=== PATIENT | female | born 1970 | race Caucasian/White ===

== ENCOUNTER 2021-11-30 15:28 | Emergency (ER) | payer BC, SELFPAY ==
[2021-11-30 15:35] VITALS: BP 128/85; PULSE 83; RESP 16; TEMP 36.6; O2SAT 97; BMI 36.6
--- NOTE | 2021-11-30 16:29 | CRLHL7_ITS ---
For Patients: As a result of the Cures Act, medical imaging exams and procedure reports are released immediately into your electronic medical record. You may view this report before your referring provider. If you have questions, please contact your health care provider. INDICATION: Pain. TECHNIQUE: Three views. COMPARISON: None. IMPRESSION: No appreciable joint effusion. No fracture, subluxation or dislocation. Dictated by Lane Dobbs MD @ 11/30/2021 5:57:05 PM (Electronically Signed)
--- NOTE | 2021-11-30 16:31 | ED_ITS ---
HPI - General Adult General Time Seen by Provider: 16:31 Date Seen: 11/30/21 Chief complaint: Extremity Pain/Injury, Lower Stated complaint: Knee Injury Time Seen by Provider: 11/30/21 15:36 Source: patient Mode of arrival: ambulatory Limitations: physical limitation History of Present Illness HPI narrative: Patient is a 51-year-old female who was walking with some bags of groceries in her hands and her left knee twisted somehow she thinks it was a valgus-type switch twist and she has a immediate pain around her kneecap she is unable to walk after that now it hurts to put bearing weight on her leg. She had a history of a ACL repair on the left knee in the past, but she reports the ?trimmed it did not fix it?. This was an arthroscopic surgery remotely. She has no swelling of the leg no swelling of the knee, no history of recent knee injury, no other injuries reported reports the discomfort is moderate but significant when she moves her knee , does not radiate Related Data Home Medications Medication Instructions Recorded Confirmed escitalopram oxalate 10 mg tablet mg 11/30/21 levothyroxine 75 mcg tablet mcg 11/30/21 metformin 500 mg tablet,extended mg PO 11/30/21 release 24 hr rosuvastatin 5 mg tablet mg 11/30/21 topiramate 50 mg tablet mg 11/30/21 Previous Rx's Medication Instructions Recorded ketorolac 10 mg tablet 10 mg PO Q8H PRN pain 3 days #14 11/30/21 tabs Allergies Allergy/AdvReac Type Severity Reaction Status Date / Time No Known Drug Allergies Allergy Verified 11/30/21 15:40 Review of Systems Status of ROS: Reports: 6 or more systems reviewed and unremarkable except as noted in History and below PFSH PFSH Social History Smoking Status: Never smoker Do you use any of these nicotine containing products: None How often do you have a drink containing alcohol: monthly or less How many standard drinks containing alcohol do you have on a typical day: 1 or 2 AUDIT-C Alcohol total score: 1 Non-prescribed substance use: denies use service: No Exam Narrative: Exam Narrative: Objective: Patient is alert or x3 Left knee exam shows no effusion, mild patellar apprehension, mild medial patellar to tenderness. Mild medial joint line tenderness anteriorly. Range of motion is limited secondary to discomfort but I am able to flex extend her knee in her kneecap seems to track in the right position. Left lower extremity otherwise unremarkable Const: Vital Signs, click to edit/add: Vital Signs - 24 hr 11/30/21 15:35 Temperature 97.8 F Pulse Rate [Pulse Oximeter] 83 Respiratory Rate 16 Blood Pressure [Ri ght Upper Arm] 128/85 Pulse Oximetry 97 Oxygen Delivery Me thod Room Air Course Vital Signs Vital signs: Initial Vital Signs Temperature 97.8 F 11/30/21 15:35 Temperature Source Temporal Artery Scan 11/30/21 15:35 Pulse Rate 83 11/30/21 15:35 Pulse Rhythm 11/30/21 15:35 Pulse Strength 3+ Normal 11/30/21 15:35 Respiratory Rate 16 11/30/21 15:35 Blood Pressure 128/85 11/30/21 15:35 Blood Pressure Mean 99 11/30/21 15:35 Blood Pressure Position Sitting 11/30/21 15:35 Pulse Oximetry 97 11/30/21 15:35 Oxygen Delivery Method 11/30/21 15:35 Vital Signs Temperature 97.8 F 11/30/21 15:35 Pulse Rate 83 11/30/21 15:35 Respiratory Rate 16 11/30/21 15:35 Blood Pressure 128/85 11/30/21 15:35 Pulse Oximetry 97 11/30/21 15:35 Oxygen Delivery Method 11/30/21 15:35 Temperature 97.8 F 11/30/21 15:35 Pulse Rate 83 11/30/21 15:35 Respiratory Rate 16 11/30/21 15:35 Blood Pressure 128/85 11/30/21 15:35 Pulse Oximetry 97 11/30/21 15:35 Oxygen Delivery Method 11/30/21 15:35 Medical Decision Making MDM Narrative Medical decision making narrative: Patient has a knee injury, which certainly could be patellar subluxation, meniscal tear medially. We will get an x-ray of her k The nee including a sunrise view. Will put in an immobilizer. Will give her Toradol and [place] now. Likely crutch walking, knee immobilizer, icing, Toradol for home , orthopedic followup in the next 2-3 days. Addendum: The patient's x-ray of her knee by my review looks unremarkable kneecap is in the proper alignment the femoral groove. Patient will be given knee immobilizer, crutches if she wishes, sasha and [place] recommended, follow up with primary care. Will fax in a Toradol prescription, I think when she is in immobilizer in icing she will have less discomfort. Discharge Plan Discharge Clinical Impression: Acute knee pain Patient Disposition: Home w/ Parent or Adult Condition: Stable Additional Instructions: Knee immobilizer, icing, Toradol as needed, return to see primary care in 2 to 3 days, crutches if needed Activity Level: Light activity and Weight Bearing as Tolerated Discharge Diet: Regular Prescriptions: New ketorolac 10 mg tablet 10 mg PO Q8H PRN (Reason: pain) 3 Days Qty: 14 0RF No Action levothyroxine 75 mcg tablet Label Comments: TAKE 1 TABLET BY MOUTH DAILY metformin 500 mg tablet extended release 24 hr PO Label Comments: TAKE 1 TABLET BY MOUTH TWICE DAILY WITH BREAKFAST AND DINNER escitalopram oxalate 10 mg tablet Label Comments: TAKE 1 TABLET BY MOUTH DAILY rosuvastatin 5 mg tablet Label Comments: TAKE 1 TABLET BY MOUTH DAILY topiramate 50 mg tablet Label Comments: TAKE 1 TABLET BY MOUTH TWICE DAILY Stand Alone Forms: MyHealth Info Instructions
[2021-11-30] MEDS: HYDROCODONE/ACETAMIN 7.5-325 TABLET 1 TAB PO (16:39)
[2021-11-30] MEDS: KETOROLAC 10 MG TABLET PO (16:39)
--- NOTE | 2021-11-30 17:35 | ED.NURSE ---
20 knee immobilizer applied to pt L leg, crutches provided to pt. Crutch walking instruction provided. Pt tolerates ambulation with crutches with some difficulty.
== END 2021-11-30 17:48 | disposition home or self-care (01) ==
PROVIDERS: Emergency Provider Family Medicine; PCP Family Medicine
DX: M25.562 Pain in left knee (principal)
CPT/HCPCS: 73562; 99283; A9270

== ENCOUNTER 2021-12-28 09:07 | Day surgery (SDC) | payer BC, SELFPAY ==
[2021-12-28] VITALS (11 sets, daily range): BP systolic 103–153; BP diastolic 59–98; PULSE 60–88; RESP 12–20; TEMP 36.1–36.7; O2SAT 93–98; BMI 36.6
[2021-12-28] MEDS: LACTATED RINGERS 1000 ML 1,000 ML 100 ML IV (09:32)
[2021-12-28] MEDS: SODIUM CHLORIDE 0.9 % (FLUSH) 10 ML SYRINGE IVF (09:32)
[2021-12-28] MEDS: CEFAZOLIN 2 GM in 0.9 % SODIUM CHLORIDE Mini-bag 100 ML IVPB (11:45)
[2021-12-28] MEDS: ROPIVACAINE 0.5% 30 ML 150 MG INJECTION (12:27)
--- NOTE | 2021-12-28 12:27 | P.ORPRC_ITS ---
Procedure Note Date of procedure: 12/28/21 Procedure: PREOPERATIVE DIAGNOSIS: 1. Left knee medial meniscus tear POSTOPERATIVE DIAGNOSIS: 1. Left knee medial meniscus [id number] tear with fragment flipped into the intercondylar notch PROCEDURE: 1. Left knee arthroscopic partial medial menisectomy, subtotal meniscectomy SURGEON: Sumit Bangura M.D. STATIONARY ENGINEER SUPERVISOR: Otilio Wall PA-C. Of note, an visitor information assistant was critical for this case to aid in patient positioning, knee manipulation, instrument exchange, and closure. ANESTHESIA: Spinal EBL: 2ml TOURNIQUET: 30 min at 300 torr COMPLICATIONS: None evident INDICATIONS: The patient is a pleasant 51-year-old female who has experienced left knee pain particularly with any twisting or turning. Physical exam was concerning for medial meniscus tear, this was confirmed on MRI. Additionally, attempted nonoperative management has been tried, and failed. Thus, surgery was recommended. FINDINGS: Bucket-handle medial meniscus tear with displaced fragment into the intercondylar notch. While primarily longitudinal bucket-handle type tear, did have some complexity to it through the red-red, red-white zone. Tissue quality not amenable to repair. DESCRIPTION OF PROCEDURE: After a thorough discussion of risks, benefits, and alternatives, the patient was brought to the operating room and placed upon the operating table. Induction of anesthesia was undertaken as previously noted. 2g iv Ancef was administered within 1 hr of incision preoperatively. Appropriate time-out was performed identifying proper patient, site, and procedure. The left lower extremity was prepped and draped in the appropriate sterile fashion using ChloraPrep. The limb was exsanguinated and tourniquet inflated. Anterolateral and anteromedial portals were established with an 11 blade, and a diagnostic arthroscopy was performed. This identified the findings as noted above. Following the diagnostic arthroscopy, a partial for medial menisectomy was performed with the combination of basket forceps and a motorized shaver. Following this, the meniscus was re-probed and found to be stable. Approximately 66-75 % of the overall meniscus required resection. At this stage, the shaver was reinserted into the suprapatellar pouch and all remaining meniscal debris was evacuated. Instruments were removed, excess fluid was drained, and closure performed with 4-0 Monocryl with Steri-Strips. Dressings were applied, the tourniquet deflated, and the patient was awoken from anesthesia and transferred to the PACU in stable condition. PLAN: 1. Weightbear as tolerated operative extremity. Crutch / walker ambulation assistance PRN. Straight leg raise to be initiated starting tomorrow by the patient. 2. Ice, acetominophen and/or ibuprofen, and Percocet for pain as needed. 3. Knee range of motion and quad sets/straight leg raise regularly 4. Follow up with PA visit in 7-10 days. for a wound check. Initiate physical therapy at that time
--- NOTE | 2021-12-28 12:37 | W.ANESCHARGE ---
Anesthesia Charges Start Date/Time Anesthesia Start Date: 12/28/21 Anesthesia Start Time: 11:33 Stop Date/Time Anesthesia Stop Date: 12/28/21 Anesthesia Stop Time: 12:35 Summary Emergency: No
--- NOTE | 2021-12-28 12:47 | W.ANESCHARGE ---
Anesthesia Charges Start Date/Time Anesthesia Start Date: 12/28/21 Anesthesia Start Time: 11:33 Stop Date/Time Anesthesia Stop Date: 12/28/21 Anesthesia Stop Time: 12:35 Summary Emergency: No
== END 2021-12-28 13:57 | disposition home or self-care (01) ==
PROVIDERS: PCP Family Medicine; Visit Provider Orthopaedic Surgery Sports Medicine
PROC: (CPT 29870; principal; 2021-12-28 11:00)
DX: S83.212A Bucket-handle tear of medial meniscus, current injury, left knee, initial encounter (principal)
CPT/HCPCS: 29881; 01400; 82962; J0690; J2250; J2400; J2405; J2704; J2795; J3010; J7120

== ENCOUNTER 2022-02-11 10:00 | Outpatient (RCR) | payer BC, SELFPAY | END 2022-02-11 10:40 | disposition home or self-care (01) | PROVIDERS: PCP Family Medicine; Visit Provider Physician Assistant Surgical | DX: Z98.890 Other specified postprocedural states (principal); Z51.89 Encounter for other specified aftercare | CPT/HCPCS: 97110; 97161 ==

== ENCOUNTER 2022-05-31 09:26 | Outpatient (CLI) | payer BC, SELFPAY | END 2022-05-31 09:27 | disposition home or self-care (01) | LOC: NFLDREF 06-04 10:01 | PROVIDERS: PCP Family Medicine; Referring Provider Family Medicine; Visit Provider Family Medicine | DX: E55.9 Vitamin D deficiency, unspecified (principal); E11.29 Type 2 diabetes mellitus with other diabetic kidney complication; R80.9 Proteinuria, unspecified; E03.9 Hypothyroidism, unspecified; E11.9 Type 2 diabetes mellitus without complications; E66.01 Morbid (severe) obesity due to excess calories; E78.5 Hyperlipidemia, unspecified; F41.9 Anxiety disorder, unspecified | CPT/HCPCS: 80053; 80061; 82043; 82306; 82570; 84443 ==

== ENCOUNTER 2022-06-17 07:57 | Outpatient (CLI) | payer BC, SELFPAY | END 2022-06-17 07:58 | disposition home or self-care (01) | PROVIDERS: PCP Family Medicine; Referring Provider Family Medicine; Visit Provider Family Medicine | DX: R68.89 Other general symptoms and signs (principal) | CPT/HCPCS: 80048 ==

== ENCOUNTER 2022-12-03 07:59 | Outpatient (CLI) | payer BC, SELFPAY | END 2022-12-03 08:00 | disposition home or self-care (01) | LOC: NFLDREF 12-04 12:40 | PROVIDERS: PCP Family Medicine; Referring Provider Family Medicine; Visit Provider Family Medicine | DX: R73.03 Prediabetes (principal); E11.29 Type 2 diabetes mellitus with other diabetic kidney complication; R80.9 Proteinuria, unspecified; I10 Essential (primary) hypertension; E78.5 Hyperlipidemia, unspecified; E03.9 Hypothyroidism, unspecified | CPT/HCPCS: 80053; 80061; 82043; 82570; 84443 ==

== ENCOUNTER 2023-07-15 07:53 | Outpatient (CLI) | payer BC, SELFPAY ==
--- OUTSIDE RECORDS SUMMARY | 2023-07-18 08:11 | XMS_ITS | Clinical Summary ---
Author Name Unknown Organization [facility] Address [place], [place] [address] Care Team Providers Care Hardware Assembler Name Role Phone Pcp, No Primary Care Provider Unavailabl e Allergies No known active allergies Medications Medication Sig Dispensed Refills Start Date End Date Status IMITREX 50 MG TAB take 2 tablets (100mg) by oral route x 1 dose with fluids as early as possible after the onset of a migraine attack; if headache returns, the dose may be repeated after 2 hours, not to exceed a total daily dose of 200mg. 0 Active topiramate (TOPAMAX) 50 mg tablet TK 1 T PO BID 3 11/25/2017 Active VITAMIN D-3 2,000 unit capsule TK 1 C PO D 1 12/06/2017 Active levothyroxine (SYNTHROID) 50 mcg tablet TK 1 T PO D 0 08/08/2018 Active oxyCODONE-acetamin ophen, 5-325 mg, (PERCOCET) 5-325 mg per tabletIndications: Kidney stones Take 1 tablet by mouth every 6 hours if needed for Pain Max acetaminophen dose: 4000mg in 24 hrs. 15 tablet 09/27/2018 Active Active Problems Problem Noted Date Diagnosed Date Kidney stones 09/27/2018 state, incidental 08/29/2006 Migraine, unspecified, witho ut mention of intractable migraine without mention of status migrainosus 07/26/2006 Immunizations Name Administration Dates Next Due Influenza, IIV3 (Age >=3 years) 01/26/2007 Td (Age >=7 Years) 12/11/2004 Family History Medical History Relation Name Comments Other Brother allergic rhinit is Alcohol/Drug Maternal Grandfather Cancer Maternal Grandfather Hypertension Maternal Grandmother Other Mother migraine Psychiatric illness Sister 1 depressi on Other Sister 2 allergic rhinit is1 Unknown Son Relation Name Status Comments Brother Maternal Grandfather Maternal Grandmother Mother Sister 1 Sister 2 Son Social History Tobacco Use Types Packs/Day Years Used Date Smoking Tobacco: Never Smokeless Tobacco: Never Tobacco Cessation:Counseling Given: Yes Alcohol Use Standard Drinks/Week Comments No 0 (1 standard drink = 0.6 oz pur e alcohol) Sex and Gender Information Value Date Recorded Sex Assigned at Not on file Gender Identity Not on file Sexual Orientation Not on file Obstetrics History Para Term AB IAB SAB Ectopic Multiple Livin g Live Births 2 1 0 0 0 0 0 0 1 1 Date Outcome GA Total Labor Labor/2nd/3rd Weight Sex Delivery Anes PTL Patty A1 A5 Name Cl in Para 05/10 12h 00m/ 3.01 kg (6 lb 10 oz) F Vag Nya ng Chen Comments 07-26-06 irreg menses, unsure of dates U/S scheduled Last Filed Vital Signs Vital Sign Reading Time Taken Comments Blood Pressure 111/75 09/27/2018 10:17 AM CDT Pulse 87 09/27/2018 10:17 AM CDT Temperature 36.7 ??C (98.1 ??F) 09/27/2018 1 0:17 AM CDT Respiratory Rate 18 09/27/2018 10:1 7 AM CDT Oxygen Saturation 96% 09/27/2018 10: 17 AM CDT Inhaled Oxygen Concentration - - Weight 96.5 kg (212 lb 11.2 oz) 09/27/2018 10:17 AM CDT Pt weighed with shoes on. Height 160 cm (5' 3) 02/08/2018 11:44 AM ROUGH RIB GRADER Body Mass Index 37.68 02/08/2018 11:44 AM ROUGH RIB GRADER Plan of Treatment Health Maintenance Due Date Last Done Comments Tdap 1982 Depression screening for age 12+ 1983 Hepatitis C screening for age 18-79 1989 Tetanus booster 12/11/2014 12/11/2004 Colonoscopy through age 75 01/26/2016 Lipids for age 45-75 01/26/2016 Mammogram for age 45-75 01/26/2016 01/19/2011 BMI (ht and wt on same day) for age 18+ 02/08/2019 02/08/2018 Zoster (shingles) series for age 50+ (1 of 2) 2021 Pap test for age 21-65 10/16/2022 0, 10/17/2019, 12/05/2014, Additional history exists COVID-19 vaccine series ( season) 2022 Influenza for age 50-64 11/27/2023 01/26/2007 HIV for age 15-65 Completed 07/26/2006 Pneumococcal series for age 6-64 Aged Out No longer eligible based on patient's age to complete this topic Procedures Procedure Name Priority Date/Time Associated Diagnosis Comments GOLD LEAF GILDER THIN PREP PAP SCREEN IMAGED Routine 10/17/2019 12:00 PM CDT SCAN-MAMMOGRAPHY REPORT 01/19/2011 12:00 AM CDT ANTI HIV 1/2 Routine 07/26/2006 1:15 PM CDT State, Incidental from Last 3 Months or Most Recently Relevant to Health Maintenance Results * GOLD LEAF GILDER THIN PREP PAP SCREEN IMAGED (10/17/2019 12:00 PM CDT) Case Report Gynecologic Cytology Report ? Case: [id number] ? Authorizing Provider: ??Belinda Go MD ??Collected: ? 10/17/2019 1200 ? Ordering Location: ? [facility] ?Received: ?10/19/2019 0959 ? First Screen: ?Elena Boucher ? Specimen: ?GOLD LEAF GILDER ThinPrep Vial Screening, Cervical/Vaginal ? 10/25/2019 3:04 PM CDT [facility] INTERPRETATION/ RESULT NEGATIVE FOR INTRAEPITHELIAL LESION OR MALIGNANCY (NIL) (none) 10/25/2019 3:04 PM CDT [facility] IMEN ADEQUACY Satisfactory for evaluation No endocervical component seen 10/25/2019 3:04 PM CDT [facility] HPV REQUEST HPV and PAP 10/25/2019 3:04 PM CDT [facility] Additional Information 10/25/2019 3:04 PM CDT [facility] Comment: Interpreted at [facility] - [address], [place] [address] Automated Review Successful 10/25/2019 3:04 PM T [facility] Comment:Specimen processed s uccessfully by automated cloud systems administrator device, ThinPrep Imaging System, [employer] ANCILLARY TESTING GOLD LEAF GILDER HPV Ordered, Please see separate report 10/25/2019 3:04 PM CDT [facility] Note The pap test is a screening technique, not a diagnostic procedure. It is used primarily to screen for squamous cancers and precursor lesions. Published studies have shown that it is subject to both false negative and false positive results. The pap test should not be used as the sole means to diagnose or exclude pre-malignant and malignant lesions. 10/25/2019 3:04 PM CDT [facility] Other (Cervical/Vagina l) 10/17/2019 12:00 PM CDT 10/19/2019 9:59 AM CDT Belinda Go MD PATHOLOGY/CYTOLO GY [facility] [address] [place] [address], [place] * SCAN-MAMMOGRAPHY REPORT (01/19/2011 12:00 AM CDT) Anatomical Region Laterality Modality Other Narrative Procedure Note Scanner - 01/19/2011 12:00 AM CDT Scanner OTHER * ANTI HIV 1/2 (07/26/2006 1:15 PM CDT) ANTI HIV 1/2 Non-reacti ve [facility] Blood specimen (specimen) BLOOD SPECIMEN / Unknown 07/26/2006 1:15 PM CDT 07/26/2006 1:01 PM CDT Sweta Doshi NP SEND OUTS [facility] INTERNAL ZIP [phone] [address] from Last 3 Months or Most Recently Relevant to Health Maintenance Care Teams Hardware Assembler Relationship Specialty Start Date End Date Pcp, No . PCP - General 05/21/15
== END 2023-07-15 07:54 | disposition home or self-care (01) ==
LOC: NFLDREF 07-18 08:09
PROVIDERS: PCP Family Medicine; Referring Provider Family Medicine; Visit Provider Family Medicine
DX: E11.29 Type 2 diabetes mellitus with other diabetic kidney complication (principal); R80.9 Proteinuria, unspecified; E78.5 Hyperlipidemia, unspecified
CPT/HCPCS: 80053; 80061; 82043; 82570

== ENCOUNTER 2023-10-12 12:48 | Outpatient (CLI) | payer BC, SELFPAY ==
--- OUTSIDE RECORDS SUMMARY | 2023-10-12 12:50 | XMS_ITS | Clinical Summary ---
Author Organization [facility] Address [place], [place] [address] Care Team Providers Care Cavalry Officer Name Role Phone Pcp, No Primary Care [...] Outcome GA Total Labor Labor/2nd/3rd Weight Sex Type Anes PTL Patty A1 A5 Name Clin Para 2003 12h 00m/ 3.01 kg (6 lb 10 oz) F Vag Living Chen Comments 07-26-06 irreg menses, unsure of [...] 160 cm (5' 3) 02/08/2018 11:44 AM INDUSTRIAL PSYCHOLOGIST Body Mass Index 37.68 02/08/2018 11:44 AM INDUSTRIAL PSYCHOLOGIST Plan of Treatment Health Maintenance Due Date [...] Procedure Name Priority Date/Time Associated Diagnosis Comments UTILITY TELLER THIN PREP PAP SCREEN IMAGED Routine 10/17/2019 12:00 PM CDT SCAN-MAMMOGRAPHY REPORT 01/19/2011 12:00 AM CDT ANTI HIV 1/2 Routine 07/26/2006 1:15 PM CDT State, Incidental from Last 3 Months or Most Recently Relevant to Health Maintenance Results * UTILITY TELLER THIN PREP PAP SCREEN IMAGED (10/17/2019 12:00 PM CDT) Case Report Gynecologic Cytology Report ? Case: [id number] ? Authorizing Provider: ??Belinda Go MD ??Collected: ? 10/17/2019 1200 ? Ordering Location: ? [facility] ?Received: ?10/19/2019 0959 ? First Screen: ?Elena Boucher ? Specimen: ?UTILITY TELLER ThinPrep Vial Screening, Cervical/Vaginal ? 10/25/2019 3:04 PM CDT [facility] INTERPRETATION/ RESULT NEGATIVE FOR INTRAEPITHELIAL LESION OR MALIGNANCY (NIL) (none) 10/25/2019 3:04 PM CDT [facility] IMEN ADEQUACY Satisfactory for evaluation No endocervical component seen 10/25/2019 3:04 PM CDT [facility] HPV REQUEST HPV and PAP 10/25/2019 3:04 PM CDT [facility] Additional Information 10/25/2019 3:04 PM CDT [facility] Comment: Interpreted at [facility] - [address], [place] [address] Automated Review Successful 10/25/2019 3:04 PM CDT [facility] Comment:Specimen processed s uccessfully by automated geochemical manager device, ThinPrep Imaging System, [employer] ANCILLARY TESTING UTILITY TELLER HPV Ordered, Please see separate report 10/25/2019 3:04 PM CDT [facility] Note The pap test is a [...] and malignant lesions. 10/25/2019 3:04 PM CDT [facility] Other (Cervical/Vagina l) 10/17/2019 12:00 PM CDT 10/19/2019 9:59 AM CDT Belinda Go MD PATHOLOGY/CYTOLO GY [facility] [address] [place] [address], [place] * SCAN-MAMMOGRAPHY REPORT (01/19/2011 12:00 AM CDT) Anatomical Region Laterality Modality Other Narrative Procedure Note Scanner - 01/19/2011 12:00 AM CDT Scanner OTHER * ANTI HIV 1/2 (07/26/2006 1:15 PM CDT) ANTI HIV 1/2 Non-reacti ve [facility] Blood specimen (specimen) BLOOD SPECIMEN / Unknown 07/26/2006 1:15 PM CDT 07/26/2006 1:01 PM CDT Sweta Doshi NP SEND OUTS [facility] INTERNAL ZIP [phone] [address] from Last 3 Months or Most Recently Relevant to Health Maintenance Care Teams Cavalry Officer Relationship Specialty Start Date End Date Pcp, No . PCP - General 05/21/15
--- NOTE | 2023-10-12 13:00 | CRLHL7_ITS ---
For Patients: As a result of the Cures Act, medical imaging exams and procedure reports are released immediately into your electronic medical record. You may view this report before your referring provider. If you have questions, please contact your health care provider. BILATERAL SCREENING MAMMOGRAM WITH COMPUTER-AIDED DETECTION AND TOMOSYNTHESIS TECHNIQUE: CC and MLO views were obtained. These mammographic images have been obtained using full-field digital technique. These mammographic images were interpreted with the benefit of computer-aided detection. Breast Tomosynthesis was used in this interpretation. COMPARISON FILM: 01/01/21, 09/07/18, 08/02/17. FINDINGS: There are scattered areas of fibroglandular density IMPRESSION: There is no radiographic evidence for malignancy. ASSESSMENT: BI-RADS Category 1: Negative RECOMMENDATION: Routine screening mammogram in 1 year. A lay language report of this examination will be provided to the patient. Brad Berg M.D. Diagnostic Radiologist [email or web address] Transcribed: 2:53 p.mKita paul/Dictated by: Brad Berg MD @ 10/13/2023 12:42:00 PM (Electronically Signed)
== END 2023-10-12 12:49 | disposition home or self-care (01) ==
LOC: MAMMO 12:49
PROVIDERS: PCP Family Medicine; Visit Provider Family Medicine
DX: Z12.31 Encounter for screening mammogram for malignant neoplasm of breast (principal)
CPT/HCPCS: 77063; 77067

== ENCOUNTER 2023-10-13 07:57 | Outpatient (CLI) | payer BC, SELFPAY ==
--- OUTSIDE RECORDS SUMMARY | 2023-10-16 03:55 | XMS_ITS | Clinical Summary ---
Author Organization [facility] [facility] Address [place], [place] [address] Care Team Providers Care Fruit Shipper Name Role Phone Pcp, No Primary Care [...] 160 cm (5' 3) 02/08/2018 11:44 AM EXPORT CLERK Body Mass Index 37.68 02/08/2018 11:44 AM EXPORT CLERK Plan of Treatment Health Maintenance Due Date [...] Procedure Name Priority Date/Time Associated Diagnosis Comments HAT COPYIST THIN PREP PAP SCREEN IMAGED Routine 10/17/2019 12:00 PM CDT SCAN-MAMMOGRAPHY REPORT 01/19/2011 12:00 AM CDT ANTI HIV 1/2 Routine 07/26/2006 1:15 PM CDT State, Incidental from Last 3 Months or Most Recently Relevant to Health Maintenance Results * HAT COPYIST THIN PREP PAP SCREEN IMAGED (10/17/2019 12:00 PM CDT) Case Report Gynecologic Cytology Report ? Case: [id number] ? Authorizing Provider: ??Belinda Go MD ??Collected: ? 10/17/2019 1200 ? Ordering Location: ? [facility] ?Received: ?10/19/2019 0959 ? First Screen: ?Elena Boucher ? Specimen: ?HAT COPYIST ThinPrep Vial Screening, Cervical/Vaginal ? 10/25/2019 3:04 PM CDT [facility] INTERPRETATION/ RESULT NEGATIVE FOR INTRAEPITHELIAL LESION OR MALIGNANCY (NIL) (none) 10/25/2019 3:04 PM CDT [facility] IMEN ADEQUACY Satisfactory for evaluation No endocervical component seen 10/25/2019 3:04 PM CDT [facility] HPV REQUEST HPV and PAP 10/25/2019 3:04 PM CDT [facility] Additional Information 10/25/2019 3:04 PM CDT [facility] Comment: Interpreted at [facility] - [address], [place] [address] Automated Review Successful 10/25/2019 3:04 PM CDT [facility] Comment:Specimen processed s uccessfully by automated radio electrician device, ThinPrep Imaging System, [employer] ANCILLARY TESTING HAT COPYIST HPV Ordered, Please see separate report 10/25/2019 3:04 PM CDT [facility] Note The pap test is [...] and malignant lesions. 10/25/2019 3:04 PM CDT [facility] Other (Cervical/Vagina l) 10/17/2019 12:00 PM CDT 10/19/2019 9:59 AM CDT Belinda Go MD PATHOLOGY/CYTOLO GY [facility] [address] [place] [address], [place] * SCAN-MAMMOGRAPHY REPORT (01/19/2011 12:00 AM CDT) Anatomical Region Laterality Modality Other Narrative Procedure Note Scanner - 01/19/2011 12:00 AM CDT Scanner OTHER * ANTI HIV 1/2 (07/26/2006 1:15 PM CDT) ANTI HIV 1/2 Non-reacti ve [facility] Blood specimen (specimen) BLOOD SPECIMEN / Unknown 07/26/2006 1:15 PM CDT 07/26/2006 1:01 PM CDT Sweta Doshi NP SEND OUTS [facility] INTERNAL ZIP [address] [address] from Last 3 Months or Most Recently Relevant to Health Maintenance Care Teams Fruit Shipper Relationship Specialty Start Date End Date Pcp, No . PCP - General 05/21/15
== END 2023-10-13 07:58 | disposition home or self-care (01) ==
LOC: NFLDREF 10-16 03:53
PROVIDERS: PCP Family Medicine; Referring Provider Family Medicine; Visit Provider Family Medicine
DX: I10 Essential (primary) hypertension (principal); E78.5 Hyperlipidemia, unspecified; E11.29 Type 2 diabetes mellitus with other diabetic kidney complication; R80.9 Proteinuria, unspecified; E03.9 Hypothyroidism, unspecified; R79.89 Other specified abnormal findings of blood chemistry; E53.8 Deficiency of other specified B group vitamins
CPT/HCPCS: 80053; 82607; 82728; 84443

== ENCOUNTER 2024-01-27 03:00 | Emergency (ER) | payer BC, SELFPAY ==
[2024-01-27 03:07] VITALS: BP 154/90; PULSE 96; RESP 16; TEMP 36.4; O2SAT 99; BMI 38.7
--- NOTE | 2024-01-27 03:29 | CRLHL7_ITS ---
For Patients: As a result of the Century Cures Act, medical imaging exams and procedure reports are released immediately into your electronic medical record. You may view this report before your referring provider. If you have questions, please contact your health care provider. INDICATION: Dyspnea. TECHNIQUE: Chest radiographs, 2 views. COMPARISON: Chest radiographs 08/12/2022. FINDINGS: Cardiovascular/Mediastinum: Normal heart size. Unremarkable. Lungs: No focal consolidation. Linear band like opacification of the lungs bilaterally, likely subsegmental Airways: Trachea remains midline. Pleura: No pleural effusions or pneumothorax. Bones: No acute osseous abnormalities. Upper abdomen: Unremarkable. IMPRESSION: No acute cardiopulmonary process. Dictated by Romie Duran MD @ 01/27/2024 3:51:21 AM (Electronically Signed)
[2024-01-27 03:30] VITALS: PULSE 95; O2SAT 96
--- NOTE | 2024-01-27 03:30 | ED_ITS ---
HPI - Chest Pain General Chief Complaint: Chest Pain Stated Complaint: Chest pains Time Seen by Provider: 01/27/24 03:25 History of Present Illness HPI narrative: Patient is a 54 year old woman who presents with a live-in hours of chest pain. The pain is in the midsternum without radiation. She does have worsening of her symptoms when she takes a deep breath. No nausea no vomiting no fevers no chills. Patient has not been doing any unusual activities. She has no personal history of heart disease. EKG shows normal sinus rhythm upon my review with no acute ST or T-wave changes. Related Data Home Medications ?Medication ?Instructions ?Recorded ?Confirmed albuterol sulfate 90 mcg/actuation 2 puff inhalation Q4-6H PRN 07/02/22 10/18/23 aerosol inhaler (Ventolin HFA) cetirizine 10 mg capsule (Zyrtec) 10 mg PO QDAY PRN 08/12/22 10/18/23 lancets 30 gauge (BD Ultra-Fine II 09/09/22 10/18/23 Lancets) fluticasone 113 mcg-salmeterol 14 1 inh PO BID PRN 07/20/23 10/18/23 mcg/actuation breath activated powdr Previous Rx's ?Medication ?Instructions ?Recorded sumatriptan succinate 50 mg tablet 50 mg PO .Once as needed PRN 06/03/22 migraine headache #7 tabs losartan 25 mg tablet 25 mg PO QDAY #90 tabs 07/20/23 metformin 500 mg tablet,extended 1,000 mg (2 x 500 mg) PO BID #360 07/20/23 release 24 hr tabs rosuvastatin 5 mg tablet 5 mg PO QDAY #90 tabs 07/20/23 escitalopram oxalate 20 mg tablet 20 mg PO QDAY #90 tabs 10/18/23 (Lexapro) levothyroxine 75 mcg tablet 75 mcg PO DAILY #90 tabs 12/05/23 montelukast 10 mg tablet 10 mg PO QHS #90 tabs 12/05/23 topiramate 50 mg tablet 50 mg PO BID #180 tabs 12/05/23 Allergies Allergy/AdvReac Type Severity Reaction Status Date / Time No Known Drug Allergies Allergy Verified 10/18/23 14:55 Review of Systems Status of ROS Reports: 10 or more systems reviewed and unremarkable except as noted in History and below [facility] Medical History Kidney stones ?N20.0 - Calculus of kidney (ICD-10) Obstructive sleep apnea treated with continuous positive airway pressure (CPAP) ?G47.33 - Obstructive sleep apnea (adult) (pediatric) (ICD-10) ?Z99.89 - Dependence on other enabling machines and devices (ICD-10) Type 2 diabetes mellitus with albuminuria (~11/2020) ?E11.29 - Type 2 diabetes mellitus with other diabetic kidney complication (ICD-10) ?R80.9 - Proteinuria, unspecified (ICD-10) Morbid obesity with body mass index (BMI) of 40.0 or higher ?E66.01 - Morbid (severe) obesity due to excess calories (ICD-10) Mild persistent asthma (01/2019) ?J45.30 - Mild persistent asthma, uncomplicated (ICD-10) Migraine ?G43.909 - Migraine, unspecified, not intractable, without status migrainosus (ICD-10) Hypothyroidism (04/16/11) ?E03.9 - Hypothyroidism, unspecified (ICD-10) Ganglion of wrist ?M67.439 - Ganglion, unspecified wrist (ICD-10) Dyslipidemia ?E78.5 - Hyperlipidemia, unspecified (ICD-10) Depression (11/2020) ?F32.A - Depression, unspecified (ICD-10) Anxiety (11/2020) ?F41.9 - Anxiety disorder, unspecified (ICD-10) Surgical History S/P medial meniscectomy of left knee (12/28/21) ?Z98.890 - Other specified postprocedural states (ICD-10) Status post arthroscopic surgery of left knee (1988) ?Z98.890 - Other specified postprocedural states (ICD-10) History of ovarian cystectomy (02/2018) ?Z98.890 - Other specified postprocedural states (ICD-10) ?Z87.42 - Personal history of other diseases of the female genital tract (ICD-10) Family History Maternal Grandmother Colon cancer, Onset Age: 75 Throat cancer Mother Diabetes Migraine headache Sister Migraine headache Daughter Seizures Rett's syndrome Social History (Updated 10/18/23 @ 15:30 by Belinda Go MD) Narrative: , works in a bank, 2 daughters, 1 has Rett syndrome, mom moved in Non smoker rarely consumes alcohol Does not exercise on regular basis Smoking Status: Never smoker Do you use any of these nicotine containing products: None How often do you have a drink containing alcohol: monthly or less How many standard drinks containing alcohol do you have on a typical day: 1 or 2 AUDIT-C Alcohol total score: 1 Non-prescribed substance use: denies use Little interest or pleasure in doing things: several days Feeling down, depressed, or hopeless: several days service: No Exam Narrative Exam Narrative: EXAM GENERAL: Patient appears comfortable and well. LYMPH: No supraclavicular or cervical lymphadenopathy. SKIN: Visible skin seen during exam normal or with benign process only. EXT: No dependent lower extremity pedal edema. HEART: Regular rate and rhythm with no murmurs, rubs, or gallops. LUNGS: Clear to auscultation bilaterally with no crackles or wheezes. ABD: Soft, non tender, non distended. PSYCH: Good eye contact, speech is not pressured. Const Vital Signs, click to edit/add: Vital Signs - 24 hr 01/27/24 03:07 01/27/24 03:30 01/27/24 03:31 Temperature 97.6 F Pulse Rate 95 93 Pulse Rate [Pulse Oximeter] 96 Respiratory Rate 16 14 Blood Pressure 140/91 H Blood Pressure [Right Upper Arm] 154/90 H Pulse Oximetry 99 96 97 Oxygen Delivery Method Room Air 01/27/24 03:45 01/27/24 04:00 01/27/24 04:15 Temperature Pulse Rate 94 93 95 Pulse Rate [Pulse Oximeter] Respiratory Rate Blood Pressure Blood Pressure [Right Upper Arm] Pulse Oximetry 93 95 95 Oxygen Delivery Method Course Course ED Course: Patient seen and examined. Troponin D-dimer CBC basic metabolic panel chest x- ray ordered. Vital Signs Vital signs: Initial Vital Signs Temperature 97.6 F 01/27/24 03:07 Temperature Source Temporal Artery Scan 01/27/24 03:07 Pulse Rate 96 01/27/24 03:07 Respiratory Rate 16 01/27/24 03:07 Blood Pressure 154/90 H 01/27/24 03:07 Blood Pressure Mean 111 H 01/27/24 03:07 Blood Pressure Position Supine 01/27/24 03:07 Pulse Oximetry 99 01/27/24 03:07 Oxygen Delivery Method Room Air 01/27/24 03:07 Vital Signs Temperature 97.6 F 01/27/24 03:07 Pulse Rate 96 01/27/24 03:07 Respiratory Rate 16 01/27/24 03:07 Blood Pressure 154/90 H 01/27/24 03:07 Pulse Oximetry 99 01/27/24 03:07 Oxygen Delivery Method Room Air 01/27/24 03:07 Temperature 97.6 F 01/27/24 03:07 Pulse Rate 95 01/27/24 04:15 Respiratory Rate 14 01/27/24 03:31 Blood Pressure 140/91 H 01/27/24 03:31 Pulse Oximetry 95 01/27/24 04:15 Oxygen Delivery Method Room Air 01/27/24 03:07 Medications Administered Medications: Generic Name Dose Route Start Last Admin Trade Name Freq PRN Reason Stop Dose Admin Ketorolac Tromethamine 30 mg 01/27/24 03:56 01/27/24 04:02 Ketorolac 30 Mg/Ml Inj IVP 01/27/24 03:57 30 mg ONCE ONE Administration MDM - Chest Pain MDM Narrative Medical decision making narrative: Patient presents with 11 hours of substernal chest pain. EKG upon arrival upon my review is unremarkable with no ST or T-wave changes. Troponin D-dimer CBC electrolytes all reassuring as is chest x-ray. This time I did give her 30 mg of IV Toradol and recommended close outpatient follow-up Tylenol Motrin rest and ice. Lab Data Labs: Lab Results 01/27/24 Range/Units 03:29 WBC 10.15 (4.50-11.00) K/uL RBC 4.75 (4.00-5.20) m/uL Hgb 14.0 (12.0-16.0) gm/dL Hct 43.3 (33.0-51.0) % MCV 91 (80-100) fL MCH 30 (26-34) pg MCHC 32 (32-36) gm/dL RDW Coeff of Jonn 12.8 (11.5-15.5) % Plt Count 243 (140-440) K/uL Neut % (Auto) 73.3 H (42.0-72.0) % Lymph % (Auto) 15.0 L (20-44) % Guthrie % (Auto) 7.8 (0.0-11.0) % Eos % (Auto) 2.5 (0.0-7.0) % Baso % (Auto) 0.4 (0.0-3.0) % Neut # (Auto) 7.40 H (1.7-7.0) K/uL Lymph # (Auto) 1.50 (0.90-2.90) K/uL Guthrie # (Auto) 0.80 (0.00-0.90) K/UL Eos # (Auto) 0.25 (0.00-0.50) K/uL Baso # (Auto) 0.04 (0.00-0.30) K/uL Abs Immat Gran (auto) 0.10 (0.00-0.30) K/uL Imm/Tot Granulo (auto) 1.0 % D-Dimer Quant (PE/DVT) 0.51 H (0.00-0.50) ug/ml Sodium 139 (135-149) mmol/L Potassium 4.3 (3.6-5.1) mmol/L Chloride 105 (96-114) mmol/L Carbon Dioxide 24 (20-32) mmol/L Anion Gap 10 (7-15) mEq/L BUN 15 (7-30) mg/dL Creatinine 0.6 (0.5-1.5) mg/dL Estimated Creat Clear 81.82 Estimated GFR 107 ml/min Glucose 194 H (60-115) mg/dL Calcium 9.6 (8.4-10.6) mg/dL Troponin I < 0.01 L (0.01-0.04) ng/mL Discharge Plan Discharge Clinical Impression: Chest pain Patient Disposition: Home, Self-Care Condition: Stable Instructions: Chest Pain (ED) Additional Instructions: Tylenol Motrin Ice Rest Follow-up with her primary physician. Activity Level: No Restrictions Discharge Diet: Regular Prescriptions: No Action sumatriptan succinate 50 mg tablet 50 mg PO .Once as needed PRN (Reason: migraine headache) Qty: 7 8RF Rx Instructions: ONE TAB AT ONSET OF HEADACHE, MAY REPEAT Q2H PRN, MAX 2 tablets /24 HRS Zyrtec 10 mg capsule 10 mg PO QDAY PRN (DME) lancets [BD Ultra-Fine II Lancets] 30 gauge misc See Rx Instructions .Route Rx Instructions: 2 times a day. escitalopram oxalate [Lexapro] 20 mg tablet 20 mg PO QDAY Qty: 90 3RF albuterol sulfate [Ventolin HFA] 90 mcg/actuation HFA aerosol inhaler 2 puff inhalation Q4-6H PRN fluticasone propion-salmeterol 113-14 mcg/actuation aerosol powdr breath activated 1 inh PO BID PRN metformin 500 mg tablet extended release 24 hr 1,000 mg PO BID Qty: 360 3RF rosuvastatin 5 mg tablet 5 mg PO QDAY Qty: 90 3RF losartan 25 mg tablet 25 mg PO QDAY Qty: 90 3RF levothyroxine 75 mcg tablet 75 mcg PO DAILY Qty: 90 1RF topiramate 50 mg tablet 50 mg PO BID Qty: 180 1RF montelukast 10 mg tablet 10 mg PO QHS Qty: 90 1RF Follow Up/Referrals: Belinda Go MD [Primary Care Provider] - Stand Alone Forms: [email or web address] Info Instructions
[2024-01-27 03:31] VITALS: BP 140/91; PULSE 93; RESP 14; O2SAT 97
[2024-01-27 03:35] LABS: Basophils Absolute Auto 0.04 K/uL (0.00-0.30); Basophils Percent Auto 0.4 % (0.0-3.0); Eosinophils Absolute Auto 0.25 K/uL (0.00-0.50); Eosinophils Percent Auto 2.5 % (0.0-7.0); Hematocrit 43.3 % (33.0-51.0); Mean Corpuscular HGB Conc 32 gm/dL (32-36); Mean Corpuscular Hemoglobin 30 pg (26-34); Mean Corpuscular Volume 91 fL (80-100); Monocytes Percent Auto 7.8 % (0.0-11.0); Neutrophils Percent Auto 73.3 % (42.0-72.0); Platelet Count* 243 K/uL (140-440); RDW Coefficient of Variation % 12.8 % (11.5-15.5); Red Blood Count 4.75 m/uL (4.00-5.20); Slide Review Reflex No; White Blood Count* 10.15 K/uL (4.50-11.00)
[2024-01-27 03:37] LABS: Sodium* 139 mmol/L (135-149)
[2024-01-27 03:38] LABS: Potassium* 4.3 mmol/L (3.6-5.1)
[2024-01-27 03:40] LABS: Creatinine* 0.6 mg/dL (0.5-1.5); Est. Creatinine Clearance* 81.82; Estimated Glomerular Filt Rate 107 ml/min
--- OUTSIDE RECORDS SUMMARY | 2024-01-27 03:40 | XMS_ITS | Clinical Summary ---
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 Plan of Treatment Health Maintenance Due Date [...] 12/05/2014, Additional history exists COVID-19 vaccine series (2023- season) 2023 Influenza for age 50-64 11/27/2023 01/26/2007 HIV for age 15-65 Completed 07/26/2006 Pneumococcal series for age 6-64 Aged Out No longer eligible based on patient's age to complete this topic Procedures Procedure Name Priority Date/Time Associated Diagnosis Comments LOCKS TENDER THIN PREP PAP SCREEN IMAGED Routine 10/17/2019 12:00 PM CDT SCAN-MAMMOGRAPHY REPORT 01/19/2011 12:00 AM CDT ANTI HIV 1/2 Routine 07/26/2006 1:15 PM CDT State, Incidental from Last 3 Months or Most Recently Relevant to Health Maintenance Results * LOCKS TENDER THIN PREP PAP SCREEN IMAGED (10/17/2019 12:00 PM CDT) Case Report Gynecologic Cytology Report ? Case: [id number] ? Authorizing Provider: ??Belinda Go MD ??Collected: ? 10/17/2019 1200 ? Ordering Location: ? [facility] ?Received: ?10/19/2019 0959 ? First Screen: ?Elena Boucher ? Specimen: ?LOCKS TENDER ThinPrep Vial Screening, Cervical/Vaginal ? 10/25/2019 3:04 PM CDT [facility] INTERPRETATION/ RESULT NEGATIVE FOR INTRAEPITHELIAL LESION OR MALIGNANCY (NIL) (none) 10/25/2019 3:04 PM CDT [facility] IMEN ADEQUACY Satisfactory for evaluation No endocervical component seen 10/25/2019 3:04 PM CDT [facility] HPV REQUEST HPV and PAP 10/25/2019 3:04 PM CDT [facility] Additional Information 10/25/2019 3:04 PM CDT [facility] Comment: Interpreted at [facility] - [address], [place] [address] Automated Review Successful 10/25/2019 3:04 PM CDT [facility] Comment:Specimen processed s uccessfully by automated back end architect device, ThinPrep Imaging System, [employer] ANCILLARY TESTING LOCKS TENDER HPV Ordered, Please see separate report 10/25/2019 3:04 PM CDT [facility] Note The pap test is a [...] and malignant lesions. 10/25/2019 3:04 PM CDT [facility] Other (Cervical/Vagina l) 10/17/2019 12:00 PM CDT 10/19/2019 9:59 AM CDT Belinda Go MD PATHOLOGY/[facility] [address] [place] [address], [place] * SCAN-MAMMOGRAPHY REPORT (01/19/2011 12:00 AM CDT) Anatomical Region Laterality Modality Other Narrative Procedure Note Scanner - 01/19/2011 12:00 AM CDT Scanner OTHER * ANTI HIV 1/2 (07/26/2006 1:15 PM CDT) ANTI HIV 1/2 Non-reacti ve [facility] Blood specimen (specimen) BLOOD SPECIMEN / Unknown 07/26/2006 1:15 PM CDT 07/26/2006 1:01 PM CDT Sweta Doshi NP SEND OUTS [facility] INTERNAL ZIP [id number] [address] from Last 3 Months or Most Recently Relevant to Health Maintenance Care Teams Box Order Person Relationship Specialty Start Date End Date Pcp, No . PCP - General 05/21/15
[2024-01-27 03:41] LABS: Blood Urea Nitrogen* 15 mg/dL (7-30); Calcium* 9.6 mg/dL (8.4-10.6); Carbon Dioxide* 24 mmol/L (20-32); Glucose* 194 mg/dL (60-115)
[2024-01-27 03:43] LABS: D Dimer Quantitative* 0.51 ug/ml (0.00-0.50)
[2024-01-27 03:45] VITALS: PULSE 94; O2SAT 93
[2024-01-27 03:51] LABS: Anion Gap 10 mEq/L (7-15); Chloride* 105 mmol/L (96-114)
[2024-01-27 03:53] LABS: Troponin I* < 0.01 ng/mL (0.01-0.04)
[2024-01-27 04:00] VITALS: PULSE 93; O2SAT 95
[2024-01-27] MEDS: KETOROLAC 30 MG/ML inj IVP (04:02)
[2024-01-27 04:15] VITALS: PULSE 95; O2SAT 95
== END 2024-01-27 04:35 | disposition home or self-care (01) ==
PROVIDERS: Emergency Provider Internal Medicine; PCP Family Medicine
DX: R07.9 Chest pain, unspecified (principal)
CPT/HCPCS: 36415; 71045; 80048; 84484; 85025; 85379; 96374; 99283; 99284; J1885

== ENCOUNTER 2024-06-15 07:50 | Outpatient (CLI) | payer BC, SELFPAY | END 2024-06-15 07:51 | disposition home or self-care (01) | PROVIDERS: PCP Family Medicine; Referring Provider Family Medicine; Visit Provider Family Medicine | DX: E78.5 Hyperlipidemia, unspecified (principal); E11.9 Type 2 diabetes mellitus without complications; I10 Essential (primary) hypertension; E55.9 Vitamin D deficiency, unspecified; R79.89 Other specified abnormal findings of blood chemistry; M81.0 Age-related osteoporosis without current pathological fracture; E66.01 Morbid (severe) obesity due to excess calories; E03.9 Hypothyroidism, unspecified | CPT/HCPCS: 80053; 80061; 82043; 82306; 82570; 82607; 84443 ==

== ENCOUNTER 2024-06-19 13:43 | Outpatient (CLI) | payer BC, SELFPAY ==
[2024-06-22 00:59] LABS: HPV Source Cervical/Vag; HPV, High Risk by TMA Not Detected
== END 2024-06-19 13:44 | disposition home or self-care (01) ==
PROVIDERS: PCP Family Medicine; Visit Provider Family Medicine
DX: Z12.4 Encounter for screening for malignant neoplasm of cervix (principal)
CPT/HCPCS: 87624; 87625; 88141; 88142

== ENCOUNTER 2024-11-16 13:37 | Outpatient (CLI) | payer BC, SELFPAY ==
--- NOTE | 2024-11-16 13:45 | MR_ITS ---
[facility] [address] [facility] [address] Phone:?[phone] Fax:?[phone] Referring Physician Information: Porfirio Morales M.D. [address] [facility] [address] Phone:?[phone] Fax:?[phone] Patient:Annette Vasquez D.O.B:?1970 Sex:?Female Phone:?[phone] [facility] MRN:?[id number] Exam Date:?11/16/2024 EXAM: MRI of the RIGHT SHOULDER without contrast CLINICAL: Right shoulder pain. Evaluate for rotator cuff tear. COMPARISONS: X-rays dated 10/26/2024. TECHNICAL: Multiplanar multisequence MRI of the right shoulder was obtained. SEDATION: None. CONTRAST: None. FINDINGS: Evaluation of the obtained sequences is relatively limited by motion artifact. Rotator cuff: Supraspinatus/Infraspinatus: Low signal calcification is seen to involve the distal supraspinatus tendon measuring approximately 9 mm in transverse dimension as seen on coronal series 5 image 10. Otherwise mild tendinosis of the distal supraspinatus and infraspinatus tendons without evidence of significant tendon tear and there is no fatty atrophy of the muscles. Teres minor: No tendinosis, tear or atrophy. Subscapularis: Mild tendinosis without evidence of significant tendon tear. No fatty atrophy of the muscle. Bursae: Subacromial-subdeltoid: Mild bursal edema. Subcoracoid: No significant bursal fluid. Coracoacromial arch: Acromion morphology: Type II. No os acromiale. Acromiohumeral space: Within normal limits. Coracohumeral space: Within normal limits. Biceps tendon, long head: Evaluation of the intra-articular tendon is limited by artifact. Suspect mild tendinosis of the intra-articular tendon without evidence of significant tendon tear or displacement. Glenohumeral joint: No significant glenohumeral joint effusion identified. Articular cartilage: Evaluation of the glenohumeral cartilage is limited by artifact. No discrete chondral defects identified as visualized. Capsule: No evidence of capsular thickening or injury. Labrum: Evaluation of the labrum is relatively limited by artifact. There is however evidence of tearing throughout the superior labrum. No perilabral cyst identified. Bones: No suspicious marrow signal alteration, fracture or dislocation. Acromioclavicular joint: Mild to moderate changes of arthrosis. No AC joint injury/widening. IMPRESSION: 1. Calcific tendinitis involving the distal supraspinatus tendon. Mild tendinosis of the supraspinatus, infraspinatus and subscapularis tendons without evidence of significant rotator cuff tendon tear. 2. Tearing of the superior labrum. 3. Suspect mild tendinosis of the intra-articular long head biceps tendon. 4. 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 JCZ Electronically signed on 11/16/2024 3:55:00 PM by Gael Ruiz D.O.
== END 2024-11-16 13:38 | disposition home or self-care (01) ==
LOC: MRI 13:37
PROVIDERS: PCP Family Medicine; Visit Provider Orthopaedic Surgery
DX: M25.511 Pain in right shoulder (principal); S43.431A Superior glenoid labrum lesion of right shoulder, initial encounter; M19.011 Primary osteoarthritis, right shoulder; M75.31 Calcific tendinitis of right shoulder
CPT/HCPCS: 73221

== ENCOUNTER 2024-12-24 07:45 | Outpatient (CLI) | payer BC, SELFPAY | END 2024-12-24 07:46 | disposition home or self-care (01) | LOC: NFLDREF 12-25 06:24 | PROVIDERS: PCP Family Medicine; Referring Provider Family Medicine; Visit Provider Family Medicine | DX: R79.89 Other specified abnormal findings of blood chemistry (principal); E11.9 Type 2 diabetes mellitus without complications; I10 Essential (primary) hypertension | CPT/HCPCS: 80048; 80061; 82607 ==